=== PATIENT | female | born 1990 | race Caucasian/White ===

== ENCOUNTER → 2021-02-06 | Outpatient (CLI) | payer OTHER | LOC: COL.CARD 12:15 | DX: R55 Syncope and collapse (principal); E71.120 Methylmalonic acidemia ==

== ENCOUNTER → 2021-05-08 | Outpatient (CLI) | payer OTHER | LOC: COL.RAD 09:17 | DX: G43.909 Migraine, unspecified, not intractable, without status migrainosus (principal); G40.909 Epilepsy, unspecified, not intractable, without status epilepticus | CPT/HCPCS: A9585 ==